=== PATIENT | female | born 1950 | race Caucasian/White ===

== ENCOUNTER 2017-06-17 12:00 | Emergency (ER) | payer MEDICARE, OTHER ==
[~2017-06-17] VITALS: Ht 180.3 cm; Wt 90.0 kg
[2017-06-17 12:02] VITALS: TEMP 98.2
[2017-06-17 12:49] LABS: BASO % 0.5 % (0.0-2.0); EOS # 0.1 (0.0-0.7); EOS % 0.8 % (0-4.0); GRAN # 4.6 (1.4-6.5); LYMPH # 2.2 (1.2-3.4); LYMPH % 29.8 % (20.0-51.0); MEAN CELL VOLUME 87 fl (80.0-100.0); MEAN CORPUSCULAR HGB CONC 35 g/dl (33.0-37.0); MEAN PLATELET VOLUME 9.3 fl (7.4-10.4); MONO # 0.5 (0.1-0.6); MONO % 6.5 % (1.7-9.3); PLATELET COUNT 277 K/mm3 (130-400); WHITE BLOOD COUNT 7.4 K/mm3 (4.8-10.8)
[2017-06-17 12:51] LABS: ALANINE AMINOTRANSFERASE 36 U/L (9-52); ALBUMIN 3.9 gm/dL (3.5-5.0); ALKALINE PHOSPHATASE 53 U/L (50-136); ANION GAP 12 mmol/L (7-16); BILIRUBIN,TOTAL 0.5 mg/dL (0.0-1.0); BLOOD UREA NITROGEN 10 mg/dL (7-17); CALCIUM 8.9 mg/dL (8.4-10.2); CARBON DIOXIDE 26 mmol/L (22-30); CHLORIDE 96 mmol/L (98-107); CREATININE, serum 0.68 mg/dL (0.52-1.25); GLUCOSE 160 mg/dL (74-106); POTASSIUM 3.1 mmol/L (3.4-5.0); SODIUM 133 mmol/L (137-145); TOTAL PROTEIN 6.5 gm/dL (6.4-8.2)
[2017-06-17 12:54] LABS: HEMATOCRIT 34.1 % (37.0-47.0); HEMOGLOBIN 11.9 g/dl (12.5-16.0); MEAN CORPUSCULAR HEMOGLOBIN 31 pg (27.0-31.0)
[2017-06-17] MEDS ORDERED: ASPIRIN E.C. 8181 MG PO (12:59)
[2017-06-17] MEDS ORDERED: OMEGA-3 1000 MG1 CAP PO (13:00)
[2017-06-17] MEDS ORDERED: B-121000 MCG PO (13:00)
[2017-06-17] MEDS ORDERED: AMARYL 2MG T2 MG/TAB PO (13:01)
[2017-06-17] MEDS ORDERED: MOTRIN 800800 MG/TAB PO (13:01)
[2017-06-17] MEDS ORDERED: FORT1000TA PO (13:02)
[2017-06-17] MEDS ORDERED: PROBIOTIC FORMU1 CAP PO (13:03)
[2017-06-17] MEDS ORDERED: PRAVACHOL10 MG PO (13:03)
[2017-06-17] MEDS ORDERED: MICARDIS HCT 251 TAB PO (13:03)
[2017-06-17 13:04] LABS: C-REACTIVE PROTEIN < 0.5 mg/dL (0.0-0.9)
[2017-06-17 14:14] VITALS: BP 169/95; PULSE 91
== END 2017-06-17 14:15 | disposition home or self-care (01) ==
LOC: COL.ER 12:00
PROVIDERS: Nurse Practitioner
DX: R55 Syncope and collapse (principal); E11.9 Type 2 diabetes mellitus without complications; Z85.3 Personal history of malignant neoplasm of breast; Z87.440 Personal history of urinary (tract) infections; Z79.82 Long term (current) use of aspirin; Z79.84 Long term (current) use of oral hypoglycemic drugs
CPT/HCPCS: J7040